=== PATIENT | male | born 1995 | race Caucasian/White ===

== ENCOUNTER 2018-12-10 02:14 | Emergency (ER) | payer MEDICAID ==
[~2018-12-10] VITALS: Ht 180.3 cm; Wt 74.8 kg
[2018-12-10 02:18] VITALS: BP_SYST 130
[2018-12-10] MEDS ORDERED: ONDANSETRON HCL 4 MG/2 ML VIAL IVP ONE (02:30)
[2018-12-10] MEDS ORDERED: NACL 0.9% 1,000 ML IV ONE ×2 (02:30→04:36)
[2018-12-10] MEDS ORDERED: PANTOPRAZOLE SODIUM 40 MG/VIAL (PROTONIX) IVP ONE (02:30)
[2018-12-10] MEDS ORDERED: PANTOPRAZOLE SODIUM 40 MG/VIAL (PROTONIX) ONE (03:08)
[2018-12-10] MEDS ORDERED: ONDANSETRON HCL 4 MG/2 ML VIAL ONE ×2 (03:08→03:17)
[2018-12-10 03:09] LABS: CALCIUM 9.5 mg/dL (8.4-11.0); CREATININE 1.18 mg/dL (0.55-1.30); POTASSIUM 4.3 mmol/L (3.5-5.1)
[2018-12-10 03:13] LABS: ALBUMIN 4.4 g/dL (3.4-4.8); TOTAL BILIRUBIN 1.3 mg/dL (0.0-1.0)
[2018-12-10 03:19] LABS: BASOPHILS % (AUTO) 0.2 % (0.0-2.0); EOSINOPHILS # (AUTO) 0.1 K/uL (0.0-0.4); EOSINOPHILS % (AUTO) 0.8 % (0.0-4.0); HEMATOCRIT 51.7 % (36-54); HEMOGLOBIN 16.9 g/dL (14.0-18.0); LYMPHOCYTES % (AUTO) 6.5 % (20.5-51.5); MEAN CORPUSCULAR HEMOGLOBIN 29 pg (27-31); MEAN CORPUSCULAR HGB CONC 33 % (32-36); MEAN CORPUSCULAR VOLUME 90 fL (79.0-98.0); MONOCYTES # (AUTO) 0.7 K/uL (0.0-1.0); MONOCYTES % (AUTO) 4.3 % (1.7-9.3); NEUTROPHILS # (AUTO) 13.9 K/uL (1.8-7.7); NEUTROPHILS % (AUTO) 88.2 % (40.0-70.0); PLATELET COUNT (AUTO) 337 K/uL (130-430); RED BLOOD CELL COUNT(AUTO) 5.74 MIL/uL (4.2-6.2); RED CELL DISTRIBUTION WIDTH 14.5 % (9.0-15.0); WHITE BLOOD COUNT (AUTO) 15.7 K/uL (4.8-10.8)
[2018-12-10 03:32] LABS: BILIRUBIN,URINE NEGATIVE (NEGATIVE); CLARITY/URINE SL HAZY (CLEAR); COLOR,URINE YELLOW (YELLOW); GLUCOSE,URINE NEGATIVE (NEGATIVE); KETONES,URINE TRACE (NEGATIVE); LEUKOCYTE ESTERASE ,URINE 1+ (NEGATIVE); NITRITE, URINE NEGATIVE (NEGATIVE); PH,URINE 5.5 (5.0-8.0); PROTEIN URINE 1+ (NEGATIVE)
[2018-12-10 03:38] LABS: BLOOD, URINE TRACE (NEGATIVE)
[2018-12-10 03:46] LABS: CANNABINOID, URINE POSITIVE (NEG <=50)
[2018-12-10 03:47] LABS: BARBITURATE, URINE NEGATIVE (NEG <=200); BENZODIAZEPINE, URINE NEGATIVE (NEG <=150); COCAINE, URINE NEGATIVE (NEG <=150); METHAMPHETAMINES SCREEN,URINE POSITIVE (NEG <=500); OPIATE, URINE NEGATIVE (NEG <=100); PHENCYCLIDINE SCREEN,URINE NEGATIVE (NEG <=25); UR TRICYCLIC ANTIDEPRESSANTS NEGATIVE (NEG <=300); URINE AMPHETAMINE POSITIVE (NEG <=500); URINE METHADONE NEGATIVE (NEG <=200); URINE OXYCODONE SCREEN NEGATIVE (NEG <=100); URINE PROPOXYPHENE SCREEN NEGATIVE (NEG <=300)
[2018-12-10 04:05] LABS: BACTERIA,URINE MODERATE /HPF (None Seen)
[2018-12-10] MEDS ORDERED: cefTRIAXone 1 GM IVPB PREMIX 50 ML IV ONE ×2 (04:45→04:51)
[2018-12-10 06:08] VITALS: BP_SYST 128
[2018-12-12 00:10] LABS: CHLAMYDIA TRACHOMATIS NAA Negative (Negative); NEISSERIA GONORRHOEAE NAA Negative (Negative)
== END 2018-12-10 06:00 | disposition home or self-care (01) ==
LOC: SED 02:14
DX: E86.0 Dehydration (principal); N34.2 Other urethritis; B34.9 Viral infection, unspecified; F15.10 Other stimulant abuse, uncomplicated
CPT/HCPCS: 36415; 80053; 80307; 81000; 83690; 85025; 86710; 87086; 87491; 87591; 96361; 96365; 96375; 99283; C9113; J0696; J2405; J7030

== ENCOUNTER 2020-04-02 10:58 | Emergency (ER) | payer MEDICAID ==
[~2020-04-02] VITALS: Ht 180.3 cm; Wt 74.8 kg
[2020-04-02 11:00] VITALS: BP_SYST 158
--- NOTE | 2020-04-02 11:00 | NUR ---
BROUGHT BACK TO BED #5 AND TRIAGED. REPORT GIVEN TO ANIL
--- NOTE | 2020-04-02 11:08 | NUR ---
DR GREENE AT BEDSIDE FOR EVALUATION
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
--- NOTE | 2020-04-02 12:00 | NUR ---
Pt resting in [facility] awaiting results of imaging
[2020-04-02] MEDS ORDERED: IBUPROFEN 600 MG TABLET PO ONE (12:15)
[2020-04-02] MEDS ORDERED: HYDROcodone/ACETAMIN 10-325 MG TAB PO ONE (12:15)
[2020-04-02 12:40] VITALS: BP_SYST 136
--- NOTE | 2020-04-02 12:40 | NUR ---
Patient given written and verbal discharge instructions and verbalizes understanding. ER MD discussed with patient the results and treatment provided. Patient in stable condition. ID arm band removed. Rx of Motrin given. Patient educated on pain management and to follow up with PMD. Pain Scale 4, given pain medication pain trending down. Opportunity for questions provided and answered. Medication side effect fact sheet provided.
== END 2020-04-02 12:40 | disposition home or self-care (01) ==
LOC: SED 10:58
DX: S52.572A Other intraarticular fracture of lower end of left radius, initial encounter for closed fracture (principal); S20.211A Contusion of right front wall of thorax, initial encounter; V18.4XXA Pedal cycle driver injured in noncollision transport accident in traffic accident, initial encounter; Y93.89 Activity, other specified; Y92.89 Other specified places as the place of occurrence of the external cause; Y99.8 Other external cause status
CPT/HCPCS: 71250-TC; 99284